=== PATIENT | male | born 1950 | race Caucasian/White ===

== ENCOUNTER → 2025-03-16 | Outpatient (BNVA) | payer MEDICARE, OTHER, SELFPAY | END | disposition home or self-care (01) | PROVIDERS: PCP Family Medicine; Referring Provider Family Medicine; Visit Provider Urology | DX: N40.1 Benign prostatic hyperplasia with lower urinary tract symptoms (principal); N13.8 Other obstructive and reflux uropathy; R97.20 Elevated prostate specific antigen [PSA]; E11.9 Type 2 diabetes mellitus without complications; I10 Essential (primary) hypertension; E66.9 Obesity, unspecified; Z68.28 Body mass index [BMI] 28.0-28.9, adult; Z87.440 Personal history of urinary (tract) infections | CPT/HCPCS: 81003; 99212; G0463 ==

== ENCOUNTER → 2025-07-04 | Outpatient (CLI) | payer MEDICARE, OTHER, SELFPAY ==
--- NOTE | 2025-07-04 08:30 | XR_ITS ---
Examination: CT abdomen and pelvis without contrast. Coronal 3-D reconstructions. Sagittal 2-D reconstructions. Date and time of exam:July 04, 2025 0855 hours INDICATIONS: Bilateral inguinal hernia repair 2006, onset right lower abdominal pain beginning 3 months ago, clinical diagnosis testicular mass CTDI: vol (mGy): 9.1 DLP: (mGycm): 545 Technique: Axial images of the abdomen have been obtained, 3 mm slice thickness Intravenous contrast material has not been administered. Low dose protocols were performed. One or more of the following dose reduction techniques were used; automated exposure control, adjustment of the mA and/or KV according to patient size, use of iterative reconstruction technique. Findings: 8mm liver cyst No extra hepatic biliary tract dilatation No gallstones. No pancreatic or adrenal mass Spleen is not enlarged. Perinephric stranding with 26 mm posterior left renal cyst 2 mm lower pole left renal calculus, no hydronephrosis Abdominal aortic calcification no aneurysmal dilatation Normal appendix Colonic diverticulosis, no diverticulitis Normal seminal vesicles Significant prostatomegaly, transverse dimension 6.4 cm with irregular contour Contracted urinary bladder Small fat-containing inguinal hernias Advanced degenerative disc disease L5-S1 Moderate to advanced narrowing hip joints IMPRESSION: Perinephric stranding, consider urinary tract infection 2 mm lower pole nonobstructing left renal calculus Colonic diverticulosis, no diverticulitis Normal appendix Significant prostatomegaly, irregular contour in addition, recommend correlation with PSA, consider transrectal prostate sonography follow-up Small fat-containing hernias
== END | disposition home or self-care (01) ==
LOC: CCTX 08:28
PROVIDERS: PCP Internal Medicine; Referring Provider Internal Medicine; Visit Provider Internal Medicine
DX: N39.0 Urinary tract infection, site not specified (principal); N20.0 Calculus of kidney; K57.30 Diverticulosis of large intestine without perforation or abscess without bleeding; N40.0 Benign prostatic hyperplasia without lower urinary tract symptoms; K46.9 Unspecified abdominal hernia without obstruction or gangrene
CPT/HCPCS: 74176

== ENCOUNTER 2025-07-15 06:06 | Inpatient (IN) | payer MEDICARE, OTHER, SELFPAY ==
[2025-07-15] VITALS (12 sets, daily range): BP systolic 132–181; BP diastolic 65–91; PULSE 58–69; RESP 14–97; TEMP 36.1–37; O2SAT 94–99; BMI 56.8
--- NOTE | 2025-07-15 | XR_ITS ---
Examinations: MRI Brain without intravenous contrast. MRA brain without intravenous contrast. MRA carotids without intravenous contrast 3-D vascular reconstructions Date and time of exam: July 15, 2025, 0900 hrs. Indications: Stroke alert this morning, onset focal neurologic deficit including left lower extremity weakness dizziness difficulty with speech Technique: Multiple axial and sagittal images of the brain have been obtained MRA brain carotid images without contrast obtained, including 3-D postprocessing, vascular maximum intensity projection images Findings: [place] is not enlarged. The optic chiasm and infundibular stalk are not remarkable. Prepontine and interpeduncular cisterns are not enlarged. No localized enlargement of the medulla or pam. Fourth ventricle and cerebellar tonsils normal in position. Subacute hemorrhage is not seen. Fourth ventricle is midline. Mass in the cerebellopontine angle region is not evident. 7th and 8th nerve complexes exhibits symmetry. Globes are symmetrical with no retro-orbital mass. Increased white matter signal mild to moderate Diffusion-weighted images demonstrate no focus restricted diffusion 9 x 5 mm mass external to the right cerebellar hemisphere, axial image 8 Mass-effect upon the ventricular system is not identified. MRA carotid images degraded by patient motion. MRA brain images posterior cerebral artery irregularity but no large vessel occlusions Impression: Negative for acute hemorrhage mass effect or midline shift No acute infarct Prominent chronic microvascular white matter change 9 x 4 mm mass external to the right cerebellar hemisphere, recommend MRI follow-up pre and postcontrast
--- NOTE | 2025-07-15 06:19 | XR_ITS ---
Examination: CT brain head without contrast. 2-D sagittal coronal reconstructions Date and time of exam:July 15, 2025, 0629 hrs. Indications: Stroke alert, onset focal neurologic deficit weakness beginning one hour ago CTDI: vol (mGy):57.5 DLP: (mGycm):1228 Technique: Multiple CT axial sections of the brain have been obtained, 5 mm slice thickness. Contrast has not been administered. 2-D sagittal, coronal reconstructions have been obtained Low dose protocols were performed. One or more of the following dose reduction techniques were used; automated exposure control, adjustment of the mA and/or KV according to patient size, use of iterative reconstruction technique. Findings: No significant ventricular enlargement. Intra-axial or extra-axial hemorrhage density is not seen. No mass effect or midline shift Basal cisterns are not remarkable. Fourth ventricle is midline. Cranial vault intact. Impression: Negative for acute hemorrhage, mass effect or midline shift
--- NOTE | 2025-07-15 06:19 | EKG_ITS ---
[facility] Test Date: 2025-07-15 Pat Name: MARIA ANTONIA CHEN Department: Room: - Gender: Male Geomagnetician: : 1950 Requested By: Nicole Monsalve Order Number: [id number] Reading MD: Nicole Monsalve Measurements Intervals [place] Rate: 59 P: 28 MS: 234 QRS: -60 QRSD: 104 T: 60 QT: 386 QTc: 385 Interpretive Statements SINUS BRADYCARDIA WITH FIRST DEGREE AV BLOCK LEFT AXIS DEVIATION [QRS AXIS < -30] SEPTAL MYOCARDIAL INFARCTION , OF INDETERMINATE AGE [40+ ms Q WAVE IN V1/V2] Compared to ECG 05/18/2023 10:53:40 Sinus rhythm no longer present Myocardial infarct finding still present /store/S0/[id number]/ecg/[id number].pdf
--- NOTE | 2025-07-15 06:19 | XR_ITS ---
Examination: CTA carotids with intravenous contrast CTA brain, head with intravenous contrast. 2-D sagittal, coronal reconstructions. 3-D reconstructions. Exam date and time: July 15, 2025, 0651 hrs. Indications: Stroke alert, onset focal neurologic deficit today CTDI: vol (mGy) 34.09 DLP: (mGycm) 604 Technique: Multiple CTA axial brain, head carotid images post intravenous contrast injection 75 cc, Isovue-370. 2-D sagittal, coronal reconstructions. 3-D reconstructions, 3-D post processing including vascular maximum intensity projection images. Low dose protocols were performed. One or more of the following dose reduction techniques were used; automated exposure control, adjustment of the mA and/or KV according to patient size, use of iterative reconstruction technique. Findings: Moderate calcification left carotid bifurcation but no significant common carotid carotid bifurcation or internal carotid artery stenoses Mildly dominant left vertebral artery in the neck with no critical stenoses No cerebral large vessel arterial occlusions or thrombus Impression: No significant neck arterial stenoses No cerebral large vessel arterial occlusions or thrombus
--- NOTE | 2025-07-15 06:19 | XR_ITS ---
Examination: AP chest single view Technique one AP portable upright chest single view Date and time: July 15, 2025, 0643 hrs., Comparison November 27, 2016 Indications: Shortness of breath today, stroke alert with chest pain Findings: Normal heart size No aspiration pneumonia. Accentuation basilar bronchovascular markings Prominent osteopenia Impression: Negative for aspiration pneumonia Basilar bronchitis pattern
--- NOTE | 2025-07-15 06:22 | PD.EDDIZZY ---
ED Dizzyness RME/HPI General Chief Complaint: Dizziness Stated Complaint: DIZZINESS Time Seen by Provider: 07/15/25 06:18 Source: patient and EMS Arrival date/time: 07/15/25 06:06 Mode of arrival: EMS Limitations: no limitations RME / HPI RME / HPI Narrative: DR. RENEE SALGADO ED EVALUATION: Patient is a 75 yo male that is in the ED with concerns unilateral weakness left lower extremity, slow speech, and dizzy this morning. Patient went to sleep at 8:30 PM, felt fine. When he woke up this morning felt that the room was spinning, felt that he had a hard time getting the words out and so he called 911. Patient denies chest pain shortness of breath abdominal pain dysuria hematuria melena bloody stools. Patient states he has a history of BPH, and has borderline hemoglobin A1c for which he takes metformin. Also has a history of hypertension. Denies any new medications, or substances. No fevers chills no cough no runny nose. Patient has been nauseous. Related Data Home Medications ?Medication ?Instructions ?Recorded ?Confirmed lisinopril 5 mg tablet 5 mg PO QDAY 08/12/19 03/16/25 amlodipine 5 mg tablet 5 mg PO HS 05/18/23 03/16/25 atorvastatin 10 mg tablet 10 mg PO HS 05/18/23 03/16/25 finasteride 5 mg tablet 5 mg PO QDAY 03/16/25 03/16/25 metformin 500 mg tablet 500 mg PO QDAY 03/16/25 03/16/25 tadalafil 5 mg tablet 5 mg PO QDAY 03/16/25 03/16/25 tamsulosin 0.4 mg capsule 0.4 mg PO BID 03/16/25 03/16/25 Allergies Allergy/AdvReac Type Severity Reaction Status Date / Time Penicillins Allergy Mild Rash Verified 03/16/25 10:20 Sulfa (Sulfonamide Allergy Nausea, Verified 03/16/25 10:20 Antibiotics) Vomiting Review of Systems Review of Systems Systems Reviewed: All systems reviewed, normal except as documented Past Medical History Past Medical History CARDIAC: Positive Cardiac Disorders and Hypertension OTHER HISTORY: Positive Chicken Pox, Measles, Mumps and Cancer Social History SMOKING STATUS: Never smoker SUBSTANCE USE: does not use ALCOHOL: Never ED Exam General Limitations: Present no limitations Head Head exam: Present atraumatic and normocephalic Eye Eye exam: Present normal appearance, PERRL and EOMI ENT ENT exam: Present normal exam and normal oropharynx Neck Neck exam: Present normal inspection and full ROM Chest Chest inspection: Present normal inspection; Absent symmetric chest wall rise Respiratory Respiratory exam: Present normal lung sounds bilaterally; Absent respiratory distress, wheezes or stridor Cardiovascular Cardiovascular exam: Present normal rhythm and bradycardia Abdominal Exam Abdominal exam: Present soft; Absent distention, tenderness, guarding or rebound Extremities Exam Extremities exam: Present normal inspection and other (Weakness left lower extremity) Neurological Exam Neurological exam: Present alert, CN II-XII intact and other (Weakness left lower extremity, mild left-sided facial droop, slurred speech) Skin Skin exam: Present warm, dry, intact and normal color Course Quality Measures none Orders Category Date Time Status Bedside Blood Glucose NOW Care 07/15/25 06:19 Active Bedside COVID-19 Antigen Test NOW Care 07/15/25 06:21 Active Bedside Influenza A&B Antigen Test NOW Care 07/15/25 06:21 Completed Loading Unit Operator Seating NOW Care 07/15/25 06:19 Active Continuous Pulse Oximetry NOW Care 07/15/25 06:19 Completed EKG (ED ONLY) *Do not use* NOW Care 07/15/25 06:19 Completed In and Out Catheter NEEDED Care 07/15/25 06:19 Active Insert IV NOW Care 07/15/25 06:19 Active NIH Stroke Scale now Care 07/15/25 06:19 Active NPO NOW Care 07/15/25 06:19 Active Nurse Swallow Screen x1 Care 07/15/25 06:19 Active Consult to Neurology / Tele-Neurology Routine Cons 07/15/25 06:[address] angio stroke protocol Stat Exams 07/15/25 06:[address] stroke protocol Stat Exams 07/15/25 06:19 Completed EKG (ED Only) Stat Exams 07/15/25 06:19 Draft XR chest 1V portable Stat Exams 07/15/25 06:19 Completed BNP [B-Type Natriuretic Peptide] Stat Lab 07/15/25 06:31 Completed CBC Stat Lab 07/15/25 06:31 Completed Comprehensive Metabolic Panel Stat Lab 07/15/25 06:31 Completed Drug Screen,Urine Stat Lab 07/15/25 06:19 Ordered Magnesium Stat Lab 07/15/25 06:31 Completed Partial Thromboplastin Time Stat Lab 07/15/25 06:31 Completed Prothrombin Time with INR Stat Lab 07/15/25 06:31 Completed Troponin I Stat Lab 07/15/25 06:31 Completed Urinalysis, C/S if Indicated Stat Lab 07/15/25 06:19 Ordered Aspirin [Ecotrin] Med 07/15/25 07:37 Discontinued 81 mg PO X1 ONE Clopidogrel [Plavix] Med 07/15/25 07:37 Discontinued 75 mg PO X1 ONE Ondansetron Inj [Zofran Inj] Med 07/15/25 06:19 Active 4 mg IVP Q4HR PRN Oseltamivir [Tamiflu] Med 07/15/25 07:31 Discontinued 75 mg PO X1 ONE Oxygen Delivery NOW RT 07/15/25 06:19 Active Vital Signs Vital signs: Vital Signs Pulse Rate 58 L 07/15/25 06:14 Respiratory Rate 18 07/15/25 06:14 Blood Pressure 153/85 H 07/15/25 06:14 Pulse Oximetry (%) 94 L 07/15/25 06:14 Oxygen Delivery Method Nasal Cannula 07/15/25 06:14 Dizziness MDM Narrative MDM Narrative:: Patient is a 75-year-old male into the emerged primary concerns for dizziness, weakness of his lower extremity as well as difficulty speaking. Vital signs and exam as listed. Concern for acute cerebrovascular accident, patient last known well is 8:30 PM. Patient has been less active bleeds window however is within the window for thrombectomy. Patient has a history of BPH, and bladder thickening. I discussed with him risk of contrast-induced nephropathy likely result in renal failure given his history of bladder dysfunction and not knowing his history of kidney disease. Patient denies any kidney disease, and states that he would like to move forward with contrast studies and not wait for his labs. Also concern for metabolic disturbance, ACS, dehydration, BPPV, DKA among others. Ordered stroke alert, patient is taken to the CT scanner hemodynamically stable Labs without acute hematologic or significant metabolic abnormality. Troponin not elevated. Patient is flu positive. Head CT, and CT angios unremarkable. On-call neurologist, agrees with not holding tenecteplase however is concerned about a posterior circulation stroke. Request admission for stroke workup. Patient admitted for CVA and Influenza A. IAndria, am scribing for and in the presence of Dr. Li. Patient data External records reviewed:: [facility] [place] previous records and EMS form Clinical information provided by:: patient and EMS Social determinants that could affect healthcare access:: none Patient has the following chronic illnesses:: Patient states he has a history of BPH, and has borderline hemoglobin A1c for which he takes metformin. Also has a history of hypertension. How is presenting disease/condition affected by chronic disease/condition?: exacerbated by Evaluation data The following diagnostics were reviewed and interpreted by me:: lab results, radiology exam(s) and EKG tracing(s) (My interpretation: EKG performed at 0652 hours, sinus bradycardia, rate 59, prolonged NE 234, normal QT, non specific T wave changes, no cardiac alert) Lab and/or radiology exams considered but not ordered:: none Interpretation Summary: See MDM narrative above. RADIOLOGY Procedure(s): XR chest 1V portable Accession Number(s): [id number] cc: Emanuel Prescott MD; Nicole Li MD~ Examination: AP chest single view Technique one AP portable upright chest single view Date and time: July 15, 2025, 0643 hrs., Comparison November 27, 2016 Indications: Shortness of breath today, stroke alert with chest pain Findings: Normal heart size No aspiration pneumonia. Accentuation basilar bronchovascular markings Prominent osteopenia Impression: Negative for aspiration pneumonia Basilar bronchitis pattern Dictated By: Emanuel Prescott MD Procedure(s): CT stroke protocol Accession Number(s): [id number] cc: Emanuel Prescott MD; Nicole Li MD~ Examination: CT brain head without contrast. 2-D sagittal coronal reconstructions Date and time of exam:July 15, 2025, 0629 hrs. Indications: Stroke alert, onset focal neurologic deficit weakness beginning one hour ago CTDI: vol (mGy):57.5 DLP: (mGycm):1228 Technique: Multiple CT axial sections of the brain have been obtained, 5 mm slice thickness. Contrast has not been administered. 2-D sagittal, coronal reconstructions have been obtained Low dose protocols were performed. One or more of the following dose reduction techniques were used; automated exposure control, adjustment of the mA and/or KV according to patient size, use of iterative reconstruction technique. Findings: No significant ventricular enlargement. Intra-axial or extra-axial hemorrhage density is not seen. No mass effect or midline shift Basal cisterns are not remarkable. Fourth ventricle is midline. Cranial vault intact. Impression: Negative for acute hemorrhage, mass effect or midline shift Dictated By: Emanuel Prescott MD Procedure(s): CT angio stroke protocol Accession Number(s): [id number] cc: Emanuel Prescott MD; Nicole Li MD~ Examination: CTA carotids with intravenous contrast CTA brain, head with intravenous contrast. 2-D sagittal, coronal reconstructions. 3-D reconstructions. Exam date and time: July 15, 2025, 0651 hrs. Indications: Stroke alert, onset focal neurologic deficit today CTDI: vol (mGy) 34.09 DLP: (mGycm) 604 Technique: Multiple CTA axial brain, head carotid images post intravenous contrast injection 75 cc, Isovue-370. 2-D sagittal, coronal reconstructions. 3-D reconstructions, 3-D post processing including vascular maximum intensity projection images. Low dose protocols were performed. One or more of the following dose reduction techniques were used; automated exposure control, adjustment of the mA and/or KV according to patient size, use of iterative reconstruction technique. Findings: Moderate calcification left carotid bifurcation but no significant common carotid carotid bifurcation or internal carotid artery stenoses Mildly dominant left vertebral artery in the neck with no critical stenoses No cerebral large vessel arterial occlusions or thrombus Impression: No significant neck arterial stenoses No cerebral large vessel arterial occlusions or thrombus Dictated By: Emanuel Prescott MD Medications / Prescriptions Medications or Prescriptions considered but not ordered:: None Medication administrations:: Medication Administration History Ondansetron HCl (Ondansetron Inj 2 Mg/Ml Inj 2 Ml) 4 mg IVP Q4HR PRN PRN Reason: NAUSEA OR VOMITING Stop: 08/14/25 06:18 Discontinued Medications Aspirin (Aspirin Ec 81 Mg Tabec) 81 mg PO X1 ONE Stop: 07/15/25 07:38 Clopidogrel Bisulfate (Clopidogrel Bisulfate 75 Mg Tablet) 75 mg PO X1 ONE Stop: 07/15/25 07:38 Oseltamivir Phosphate (Oseltamivir 75 Mg Capsule) 75 mg PO X1 ONE Stop: 07/15/25 07:32 See above Consultations Consultation(s) initiated? (list below): Yes Consultation #1 (Physician, Specialty, Details): Discussed test HPI, PMHx, lab, radiology results and/or management with resident working with the hospitalist. Will admit for further evaluation and management. Accepts patient for admission. Time: 07:39 Diagnosis Dizziness Differential Diagnosis: cerebrovascular accident, transient cerebral ischemia and other (lacunar stroke, vertebrobasilar stroke, brain bleed) Most likely diagnosis given after review of the tests above:: CVA Influenza A Admission Indicated Admission indicated?: indicated Admission Request Was there a request for admission?: Yes Admission Attestation Admission request attestation: Discussed case with [] from Hospitalist service regarding admission. Discussed patients ED course, exam findings, labs, and radiology results. The Hospitalist [agrees,declines] to accept the patient for admission. Disposition Plan Disposition Plan: Admit Critical Care Time Critical Care Time Critical Care Time: Yes Total Critical Care Time (min.): 45 Attestation: The high probability of sudden, clinically significant deterioration in the patient?s condition required the highest level of my preparedness to intervene urgently. The services I provided to this patient were to treat and/or prevent clinically significant deterioration. Services included the following: chart data review, reviewing nursing notes and/or old charts, documentation time, seo consultant collaboration regarding findings and treatment options, medication orders and management, direct patient care, vital sign assessments and ordering, interpreting and reviewing diagnostic studies and lab tests. Aggregate critical care time includes only time during which I was engaged in work directly related to the patient?s care, as described above, whether at bedside or elsewhere in the Emergency Department. It did not include time spent performing other reported procedures or the services of residents, students, nurses or physician assistants. Discharge Plan Plan Patient Disposition: Admit Acute Care w/in Hospital Prescriptions/Referrals Prescriptions/Med Rec: No Action lisinopril 5 mg tablet 5 mg PO QDAY tadalafil 5 mg tablet 5 mg PO QDAY metformin 500 mg tablet 500 mg PO QDAY finasteride 5 mg tablet 5 mg PO QDAY tamsulosin 0.4 mg capsule 0.4 mg PO BID atorvastatin 10 mg tablet 10 mg PO HS Patient Comments: TAKE ONE TABLET BY MOUTH ONE TIME DAILY amlodipine 5 mg tablet 5 mg PO HS Patient Comments: TAKE ONE TABLET BY MOUTH ONCE DAILY AT BEDTIME Problem List Clinical Impression: CVA (cerebral vascular accident), Influenza A Patient/Caregiver Discharge Instructions Print Language: Bengali Stand Alone Forms: [employer] Award Info., Patient Portal Info Letter
--- NOTE | 2025-07-15 06:22 | PC.NURSE ---
Case Consult 07/15/2025 06:21:49 [facility] Case # [id number] has been created.
[2025-07-15 06:48] LABS: Basophils # (Auto) 0.0 Thou/mm3 (0.0-0.2); Basophils % (Auto) 1 % (0-2.5); Eosinophils # (Auto) 0.2 Thou/mm3 (0.0-0.5); Eosinophils % (Auto) 2 % (0-10); Hematocrit 44.2 % (41.0-53.0); Hemoglobin 15.2 g/dL (13.5-16.0); Immature Granulocytes Auto 0.03 Thou/mm3 (0.00-0.00); Lymphocytes # (Auto) 1.3 Thou/mm3 (1.0-4.8); Lymphocytes % (Auto) 16 % (10-50); Mean Corpuscular HGB Conc 34.4 g/dl (31.0-37.0); Mean Corpuscular Hemoglobin 30.7 pg (25.0-35.0); Mean Corpuscular Volume 89 fL (80-100); Monocytes # (Auto) 0.5 Thou/mm3 (0.0-0.8); Monocytes % (Auto) 6 % (0-12); Neutrophils # (Auto) 6.0 Thou/mm3 (1.8-7.7); Neutrophils % (Auto) 75 % (37-80); Nucleated Red Blood Cell # 0.00 Thou/mm3 (0.00-0.00); Nucleated Red Blood Cell % 0 /100 WBC (0); Platelet Count 107 Thou/mm3 (140-440); RDW Standard Deviation 44.4 fL (35.1-43.9); Red Blood Count 4.95 Miln/mm3 (4.50-5.90); White Blood Count 7.9 Thou/mm3 (3.8-10.6)
--- NOTE | 2025-07-15 06:48 | ESCONSULT_ITS ---
Tele Neuro Consultation Consultation Date 07/15/25 Most Recent Vital Signs Last Vital Signs Temp 98.6 F 07/15/25 06:44 Pulse 67 07/15/25 06:45 Resp 14 07/15/25 06:45 BP 181/91 H 07/15/25 06:44 Pulse Ox 99 07/15/25 06:45 O2 Del Method Room Air 07/15/25 06:44 Consultation Narrative [facility] TeleNeurology Consult Services Patient Name:???Ravindra Simmons Date of :???1950 Identification Number:??? Date of Service:???07/15/2025 06:21:49 Diagnosis:?R42 - Dizziness/ Vertigo/ Giddiness Impression: ?Dizziness and vertigo. This presentation is concerning for a possible posterior circulation ischemic event, though a peripheral vestibular etiology such as benign paroxysmal positional vertigo (BPPV) is also in the differential. ? ?The patient is outside the time window for thrombolytic therapy and is therefore not a candidate for TNK. ? ?Initial CT head and CTA head and neck were negative for acute infarct, hemorrhage, or large vessel occlusion. ? ?I recommend starting dual antiplatelet therapy with aspirin 81 mg daily and clopidogrel 75 mg daily. ? ?Given the concern for a posterior circulation stroke not captured on initial CT, I recommend obtaining an MRI brain to further assess for diffusion restriction. ? ?Blood pressure to be managed conservatively with permissive hypertension, targeting a systolic range of 150?180 mmHg for the next 24 hours. ? ?Symptoms of vertigo without accompanying nausea or auditory symptoms remain suggestive of a central process. Our recommendations are outlined below. Recommendations: ? Stroke/Telemetry Floor ? Neuro Checks ? Bedside Swallow Eval ? DVT Prophylaxis ? IV Fluids, Normal Saline ? Head of Bed 30 Degrees ? Euglycemia and Avoid Hyperthermia (PRN Acetaminophen) Advanced Imaging: CTA Head and Neck Completed. LVO:No Patient is not a candidate for SYLVIE Metrics: Last Known Well: 07/14/2025 20:00:00 Dispatch Time: 07/15/2025 06:21:49 Arrival Time: 07/15/2025 06:06:00 Initial Response Time: 07/15/2025 06:23:46Symptoms: Dizziness . Initial patient interaction: 07/15/2025 06:29:01 NIHSS Assessment Completed: 07/15/2025 06:46:31Patient is not a candidate for Thrombolytic. Thrombolytic Medical Decision: 07/15/2025 06:46:33Patient was not deemed candidate for Thrombolytic because of following reasons: LKW outside 4.[address] Head: I personally reviewed all the CT images that were available to me and it showed: no acute changes Primary Provider Notified of Diagnostic Impression and Management Plan on: 07/15/2025 06:35:32 History of Present Illness:Patient is a 75 year old Male. Patient was brought by EMS for symptoms of Dizziness . A 75-year-old right-handed man with a past medical history of hypertension, benign prostatic hyperplasia, and borderline HbA1c, presented after awakening in the morning with a sudden onset of generalized weakness. He was reportedly at his neurological baseline the night before, around 8 PM. Upon waking, he noted he was unable to stand without assistance due to diffuse weakness and a sense of dizziness, particularly when lying flat. He denied any preceding trauma, chest pain, palpitations, shortness of breath, headache, vision changes, speech disturbances, or focal numbness. He was alert and oriented to person, place, time, and situation, with a Juan Miguel Coma Scale score of 15. No seizure-like activity or loss of consciousness was reported. Notably, he is not on any chronic anticoagulation or antiplatelet therapy, although he takes aspirin intermittently. No prior history of stroke or TIA was mentioned. There were no complaints of nausea, vomiting, diplopia, dysarthria, or dysphagia. Examination revealed no obvious focal deficits, though his inability to ambulate and positional dizziness raised concern for a central versus peripheral vestibular process. Past Medical History: ?Hypertension ?Diabetes Mellitus ?Hyperlipidemia Medications: No Anticoagulant use? No Antiplatelet use Reviewed EMR for current medications Allergies:? Reviewed Social History: Patient Is: Single Smoking: No Alcohol Use: No Drug Use: No Family History: There is no family history of premature cerebrovascular disease pertinent to this consultation ROS : 14 Points Review of Systems was performed and was negative except mentioned in HPI. Past Surgical History: There Is No Surgical History Contributory To Today?s Visit Examination: BP(181/91),?Pulse(63), 1A: Level of Consciousness - Alert; keenly responsive?+ 0 1B: Ask Month and Age - Both Questions Right?+ 0 1C: Blink Eyes & Squeeze Hands - Performs Both Tasks?+ 0 2: Test Horizontal Extraocular Movements - Normal?+ 0 3: Test Visual Parker - No Visual Loss?+ 0 4: Test Facial Palsy (Use Grimace if Obtunded) - Normal symmetry?+ 0 5A: Test Left Arm Motor Drift - No Drift for 10 Seconds?+ 0 5B: Test Right Arm Motor Drift - No Drift for 10 Seconds?+ 0 6A: Test Left Leg Motor Drift - No Drift for 5 Seconds?+ 0 6B: Test Right Leg Motor Drift - No Drift for 5 Seconds?+ 0 7: Test Limb Ataxia (FNF/Heel-Bedoya) - No Ataxia?+ 0 8: Test Sensation - Mild-Moderate Loss: Less Sharp/More Dull?+ 1 9: Test Language/Aphasia - Normal; No aphasia?+ 0 10: Test Dysarthria - Normal?+ 0 11: Test Extinction/Inattention - No abnormality?+ 0 NIHSS Score:?1 Pre-Morbid Modified Philmont Scale: 0 Points = No symptoms at all Spoke with :?Dr Li This consult was conducted in real time using interactive audio and video technology. Patient was informed of the technology being used for this visit and agreed to proceed. Patient located in hospital and provider located at home/office setting. Patient is being evaluated for possible acute neurologic impairment and high probability of imminent or life-threatening deterioration. I spent total of 40 minutes providing care to this patient, including time for face to face visit via telemedicine, review of medical records, imaging studies and discussion of findings with providers, the patient and/or family. Dr Raghav Pineda [facility] For Inpatient follow-up with [facility] physician please call [facility] at . As we are not an outpatient service for any post hospital discharge needs please contact the hospital for assistance. If you have any questions for the [facility] physicians or need to reconsult for clinical or diagnostic changes please contact us via [facility] at . Signature :Iva Pineda
[2025-07-15 07:00] LABS: B-Type Natriuretic Peptide 34 pg/mL (0-100); INR 1.1 (0.9-1.3); Partial Thromboplastin Time 27.9 Seconds (22.0-36.0); Prothrombin Time 11.5 Seconds (9.0-12.2)
[2025-07-15 07:04] LABS: Alanine Aminotransferase 20 U/L (10-49); Albumin, Serum 4.0 gm/dL (3.4-4.8); Albumin/Globulin Ratio 1.8 (1.2-2.2); Alkaline Phosphatase 52 U/L (46-116); Anion Gap 9 (7-16); Aspartate Amino Transferase 21 U/L (0-34); BUN/Creatinine Ratio 11 Ratio (12-20); Bilirubin,Total 0.8 mg/dL (0.3-1.2); Blood Urea Nitrogen 11 mg/dL (9-23); Calcium 9.9 mg/dL (8.3-10.6); Calcium (Corrected) 9.9 mg/dL (8.5-10.1); Carbon Dioxide 21.3 mMol/L (20.0-31.0); Chloride 105 mMol/L (98-107); Creatinine (Component) 1.0 mg/dL (0.6-1.3); Estimated Creatinine Clearance 114.0 mL/min (>60); Globulin 2.2 gm/dL (2.3-3.5); Glucose 145 mg/dL (74-106); Magnesium 1.8 mg/dL (1.6-2.6); Osmolality,Calculated 272 (275-295); Potassium 3.8 mMol/L (3.4-5.1); Sodium 135 mMol/L (136-145); Total Protein 6.2 gm/dL (5.7-8.2); Troponin I < 0.020 ng/mL (0.0-0.045); eGFR > 60 See Note
--- NOTE | 2025-07-15 07:43 | ECHO_ITS ---
Transthoracic Echo Report Ht (in): 72 Wt (lb): 180 Exam Location: Echo Lab Status: [employer] Team Member: Sayda Alston Indications: Procedure Performed: BP: 136 / 76 HR: 58 Technical Quality: Technically difficult study MEASUREMENTS (Male / Female) Normal Values 2D ECHO LV Diastolic Diameter PLAX 4.8 cm 4.2 - 5.9 / 3.9 - 5.3 cm LV Systolic Diameter PLAX 3.2 cm IVS Diastolic Thickness 1.2 cm 0.6 - 1.0 / 0.6 - 0.9 cm LVPW Diastolic Thickness 1.2 cm 0.6 - 1.0 / 0.6 - 0.9 cm LV Relative Wall Thickness 0.5 LVOT Diameter 1.6 cm Aortic Root Diameter 3.6 cm LV Ejection Fraction MOD BP 61.5 % >= 55 % LV Cardiac Index MOD BP 1355.2 cm?/min?m? LV Ejection Fraction MOD 4C 61.0 % LV Cardiac Index MOD 4C 1463.2 cm?/min?m? LV Ejection Fraction 4C AL 63.0 % LV Cardiac Index 4C AL 1603.6 cm?/min?m? LV Ejection Fraction MOD 2C 59.6 % LV Cardiac Index MOD 2C 1150.7 cm?/min?m? LV Ejection Fraction 2C AL 63.4 % LV Cardiac Index 2C AL 1272.5 cm?/min?m? Ascending Aorta Diameter 2.8 cm M-MODE Aortic Root Diameter MM 3.5 cm LA Systolic Diameter MM 3.4 cm LA Ao Ratio MM 1.0 AV Cusp Separation MM 1.9 cm DOPPLER AV Peak Velocity 165.0 cm/s AV Peak Gradient 10.9 mmHg AV Mean Gradient 6.0 mmHg AV Velocity Time Integral 35.1 cm AI Peak Velocity 246.0 cm/s AI Peak Gradient 24.2 mmHg AI Pressure Half Time 716.0 ms LVOT Peak Velocity 121.0 cm/s LVOT Peak Gradient 5.9 mmHg LVOT Velocity Time Integral 26.3 cm LVOT Cardiac Index 1502.4 cm?/min?m? AV Area Cont Eq vti 1.5 cm? AV Area Cont Eq pk 1.5 cm? MV Area PHT 2.6 cm? Mitral E Point Velocity 54.3 cm/s Mitral A Point Velocity 85.4 cm/s Mitral E to A Ratio 0.6 LV E' Lateral Velocity 5.3 cm/s Mitral E to LV E' Lateral Ratio 10.2 LV E' Septal Velocity 4.1 cm/s Mitral E to LV E' Septal Ratio 13.1 PV Peak Velocity 47.1 cm/s PV Peak Gradient 0.9 mmHg FINDINGS Left Ventricle Normal left ventricular size, wall thickness, systolic function with no obvious regional wall motion abnormalities. The ejection fraction is visually estimated at 55-60%. There is grade I diastolic dysfunction of the left ventricle (impaired relaxation pattern). Right Ventricle The right ventricle is normal in size and systolic function. Left Atrium The left atrium is normal by two-dimensional, color flow and Doppler imaging with no structural abnormalities, no thrombus formation present. Right Atrium The right atrium is normal by two-dimensional imaging, color flow and Doppler imaging with no structural abnormalities, no thrombus formation present. Atrial Septum The interatrial septum appears normal with no evidence of a shunt. Aorta The aorta is normal by two-dimensional, color flow and Doppler interrogation. Mitral Valve The mitral valve is normal by two-dimensional, color flow and Doppler interrogation. There is no significant mitral valve regurgitation, stenosis or prolapse. Aortic Valve The aortic valve is trileaflet and normal by two-dimensional, color flow and Doppler interrogation. Mild aortic valve regurgitation. Tricuspid Valve The tricuspid valve is normal by two-dimensional, color flow and Doppler interrogation. There is trace tricuspid valve regurgitation. Pulmonic Valve The pulmonic valve is not well visualized. There is no significant pulmonic valve regurgitation. Vessels The pulmonary artery appears normal. The inferior vena cava pulmonary and hepatic veins appear normal. Pericardium The pericardium is normal by two-dimensional imaging. There is no significant pericardial effusion. CONCLUSIONS Indication: stroke workup Negative bubble study. Normal LV size and function. Estimated EF at 55-60%. There is grade I diastolic dysfunction. The RV is normal in size and systolic function. Mild AI. Trace TR. Ronald Sampson (Electronically Signed) Final Date: 16 July 2025 13:16
[2025-07-15] MEDS: OSELTAMIVIR 75 MG CAPSULE PO (07:49)
[2025-07-15] MEDS: CLOPIDOGREL BISULFATE 75 MG TABLET PO (07:49)
[2025-07-15] MEDS: ASPIRIN EC 81 MG TABEC PO (07:49)
[2025-07-15 07:55] LABS: Collection Type, Urine Clean Catch; WBC,Urine 0 /hpf (0-5)
[2025-07-15 07:59] LABS: Bilirubin,Urine Negative (Negative); Blood,Urine Negative (Negative); Clarity,Urine Clear (Clear/Hazy); Color,Urine Colorless (Lt Yel-Yel); Culture Indicated,Urine Not Indicated; Glucose, Urine Negative (Negative); Ketones,Urine Negative (Negative); Leukocyte Esterase,Urine Negative (Negative); Nitrite,Urine Negative (Negative); PH,Urine 7.5 (5.0-7.0); Protein,Urine Negative (Neg - Trace); RBC,Urine 1 /hpf (0-3); Squamous Epithelial Cell,Urine < 1 /hpf (0-5); Urobilinogen,Urine Negative mg/dL (0.0-1.0)
[2025-07-15 08:09] LABS: Cardiac Risk Estimate 3.5 RATIO (4.0-6.7); Cholesterol 138 mg/dL (132-200); HDL Cholesterol 40 mg/dL (40-60); LDL Cholesterol,Calculated 87 mg/dL (0-130); Triglycerides 56 mg/dL (30-150)
[2025-07-15 08:20] LABS: Glucose Estimated Average 128 mg/dL (80-131); Hemoglobin A1C 6.1 % Hgb (4.8-6.0)
[2025-07-15 08:38] LABS: Specific Gravity,Urine 1.010 (1.001-1.035)
[2025-07-15 08:54] LABS: Amphetamine/Methamp Scrn,U Negative (Negative); Barbiturate Screen,Urine Negative (Negative); Benzodiazepines Screen,Urine Negative (Negative); Benzoylecgonine Screen, Ur Negative (Negative); Fentanyl Screen,Urine Negative (Negative); Opiate Screen,Urine Negative (Negative); THC Screen,Urine Negative (Negative)
--- NOTE | 2025-07-15 15:55 | PD.RESHP ---
Documentation for date of: 07/15/25 HPI History of Present Illness Chief complaint: dizziness History of present illness: Ravindra Simmons is 75 yr male with PMH of HTN, BPH, HLD, non insulin dependent T2DM presenting to ED from home due to dizziness. Stated he was trying to get up from bed last night to use the restroom but his body felt heavy. While laying in bed he was feeling dizzy and said the room was spinning. Endorsed weakness and some incontinence. Denied any headache, vomiting, slurred speech, abdominal pain, no hearing loss, or falls. Patient lives alone but has a son who visits. He is able to complete ADLs without difficulties. Has good oral intake. Episode lasted until time in ambulance. Their have been no recent changes in his medications. Vitals and labs were stable in the ED. A1c 6.1, lipid profile unremarkable. Utox, UA negative. CT head, CTA negative for hemorrhage or LVO. 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 Tele neuro was consulted. He was not candidate for thrombolytics as LWK was out of window. NIHSS score 1, given loading dose asprin and Plavix in ED. Will admit for CVA workup. PMH: as noted above PSH: hernia repair Famhx: sister has MS, negative for cancer or stroke Social: lives in [place], denies smoking or drinking Meds: Amlodipine 5 mg, atorvastatin 10 mg, finasteride 5 mg, lisinopril 20 mg, metformin 500 mg daily, tadalafil 5 mg daily, tamsulosin 0.4 mg twice daily Allergies: reash from penicillin, n/v from sulfas Review of Systems Review of Systems Systems Reviewed: All systems reviewed, normal except as documented Exam Vital Signs Temp Pulse Resp BP Pulse Ox O2 Del Method 97.0 F 63 17 140/77 H 97 Room Air 07/15/25 12:07/15/25 12:07/15/25 12:07/15/25 12:07/15/25 12:07/15/25 12:25 Narrative Exam General: Elder male, slow to respond, No acute distress, cooperative HEENT: NCAT, No JVD noted. Mucosa dry. Pupils are equal and reactive to light bilaterally. No nystagmus Cardiovascular: Normal S1 and S2. Regular rate and rhythm. Respiratory: Lungs are clear to auscultation bilaterally. No wheezing or crackles heard. Abdomen: Soft, nontender, not distended, normal bowel sounds. Bladder distension on palpation Skin: Warm to touch, dry, no rashes noted Musculoskeletal: No gross injuries. Able to move all 4 extremities. No pitting edema Neuro: Alert and oriented x3. No focal neuro deficits noted on exam Psych: Normal affect and mood Results: Labs 07/16/25 05:47 07/16/25 05:47 Labs: Short CBC 07/15/25 Range/Units 06:31 WBC 7.9 (3.8-10.6) Thou/mm3 Hgb 15.2 (13.5-16.0) g/dL Hct 44.2 (41.0-53.0) % Plt Count 107 L (140-440) Thou/mm3 BMP 07/15/25 06:31 Sodium 135 L Potassium 3.8 Chloride 105 Carbon Dioxide 21.3 BUN 11 Creatinine 1.0 Glucose 145 H Calcium 9.9 Cardiac Enzymes 07/15/25 Range/Units 06:31 Troponin I < 0.020 (0.0-0.045) ng/mL Liver Function 07/15/25 Range/Units 06:31 Total Bilirubin 0.8 (0.3-1.2) mg/dL AST 21 (0-34) U/L ALT 20 (10-49) U/L Alkaline Phosphatase 52 (46-116) U/L Albumin 4.0 (3.4-4.8) gm/dL Urine 07/15/25 Range/Units 07:12 Urine Color Colorless A (Lt Yel-Yel) Urine Clarity Clear (Clear/Hazy) Urine pH 7.5 H (5.0-7.0) Ur Specific [place] 1.010 (1.001-1.035) Urine Protein Negative (Neg - Trace) Urine Glucose (UA) Negative (Negative) Quality Measures Quality Measures none Advance care planning discussed with:: patient Medications Home Medications and Allergies Home Medications ?Medication ?Instructions ?Recorded ?Confirmed ?Type amlodipine 5 mg tablet 5 mg PO HS 05/18/23 07/15/25 History atorvastatin 10 mg tablet 10 mg PO HS 05/18/23 07/15/25 History finasteride 5 mg tablet 5 mg PO QDAY 03/16/25 07/15/25 History metformin 500 mg tablet 500 mg PO QDAY 03/16/25 07/15/25 History tadalafil 5 mg tablet 5 mg PO QDAY 03/16/25 07/15/25 History tamsulosin 0.4 mg capsule 0.4 mg PO BID 03/16/25 07/15/25 History lisinopril 20 mg tablet 20 mg PO QDAY 07/15/25 07/15/25 History Allergies Allergy/AdvReac Type Severity Reaction Status Date / Time Penicillins Allergy Mild Rash Verified 03/16/25 10:20 Sulfa (Sulfonamide Allergy Nausea, Verified 03/16/25 10:20 Antibiotics) Vomiting Visit Medications Acetaminophen (Acetaminophen 325 Mg Tablet) 650 mg PO Q6H PRN PRN Reason: Fever >100.4 or pain Stop: 08/14/25 07:42 Dextrose (Dextrose 50%-Water Inj 50 Ml Syringe) 25 ml IV Q15MIN PRN PRN Reason: BG 50-70 responsive npo pt Stop: 08/14/25 07:52 Dextrose (Dextrose 50%-Water Inj 50 Ml Syringe) 50 ml IV Q15MIN PRN PRN Reason: BG <50 OR BG <70 & pt unresponsive Stop: 08/14/25 07:52 Glucagon (Glucagon Inj 1 Mg Vial) 1 mg IM Q15MIN PRN PRN Reason: BG <70, and no IV access Insulin Human Lispro (Insulin Lispro (Admelog) 1 Unit/0.01 Ml Unit) 0 unit SC ACHS CARLITA; Protocol Stop: 08/14/25 11:29 Last Admin: 07/15/25 12:20 Dose: Not Given Labetalol HCl (Labetalol Inj 5 Mg/Ml Vial 20 Ml) 10 mg IVP Q4HR PRN PRN Reason: for SBP >180 Stop: 08/14/25 07:49 Ondansetron HCl (Ondansetron Inj 2 Mg/Ml Inj 2 Ml) 4 mg IVP Q6H PRN; Protocol PRN Reason: NAUSEA OR VOMITING Stop: 08/14/25 07:42 Oseltamivir Phosphate (Oseltamivir 75 Mg Capsule) 75 mg PO BID CARLITA Stop: 07/21/25 09:01 Sennosides (Senna Tablet) 1 tab PO QDAY PRN; Protocol PRN Reason: constipation Stop: 08/14/25 07:42 Discontinued Medications Aspirin (Aspirin Ec 81 Mg Tabec) 81 mg PO X1 ONE Stop: 07/15/25 07:38 Last Admin: 07/15/25 07:49 Dose: 81 mg Clopidogrel Bisulfate (Clopidogrel Bisulfate 75 Mg Tablet) 75 mg PO X1 ONE Stop: 07/15/25 07:38 Last Admin: 07/15/25 07:49 Dose: 75 mg Ondansetron HCl (Ondansetron Inj 2 Mg/Ml Inj 2 Ml) 4 mg IVP Q4HR PRN PRN Reason: NAUSEA OR VOMITING Stop: 08/14/25 06:18 Oseltamivir Phosphate (Oseltamivir 75 Mg Capsule) 75 mg PO X1 ONE Stop: 07/15/25 07:32 Last Admin: 07/15/25 07:49 Dose: 75 mg Assessment & Plan Plan Ravindra Simmons is 75 yr male with PMH of HTN, BPH, HLD, non insulin dependent T2DM presenting to ED from home due to dizziness. Stated he was trying to get up from bed last night to use the restroom but his body felt heavy. While laying in bed he was feeling dizzy and said the room was spinning. Will admit for CVA rule out. #Dizziness DDx: Ischemic stroke, TIA, cerebellar mass, vertigo Stated he was trying to get up from bed last night to use the restroom but his body felt heavy. While laying in bed he was feeling dizzy and said the room was spinning. Endorsed weakness and some incontinence. Vitals and labs were stable in the ED. Utox, UA negative. CT head, CTA negative for hemorrhage or LVO. 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 He was not candidate for thrombolytics as LWK was out of window. NIHSS score 1, given loading dose asprin and Plavix in ED. A1c 6.1, lipid profile unremarkable ?Dr. Connell was consulted--appreciate recs ?Start aspirin 81 mg and Plavix 75 mg daily shira teleneuro -atorvastatin 40 mg HS ? Echo pending ?Physical therapy pending ? Head of bed elevation 30 degrees ? Continue permissive hypertension for 24 hours as per neurorecommendations ? 10 mg IV labetalol every 4 hours as needed if BP >[id number] # [id number] type 2 diabetes On admission initial glucose 145. Last A1c 6.3 on 05/10. Patient takes metformin 500mg daily for diabetes at home. -Held home medications -Bedside blood glucose checks ACHS -Insulin lispro sliding scale -Carb consistent low diet -A1c 6.1 #BPH #Prostatomegaly Cr 1.0, bladder distension on exam. Follows with Dr. Peralta. Patient has seen urologist in [place] in 2018 said that he had noninvasive biopsy of the prostate gland. CT AP from 07/04 Significant prostatomegaly, transverse dimension 6.4 cm with irregular contour -insert ramirez cath -continue finasteride 5mg daily -holding tamsulosin 0.4 mg BID until after 24 hr permissive htn #HTN Holding home medications lisinopril 20 mg daily and amlodipine 5 mg until tomorrow -Monitor vitals Health maintenance: Dispo: tele, CVA rule out FEN: low carb diet DVT prophylaxis: Lovenox 40 CODE STATUS: Full code The patient's management plan was discussed with my attending physician Dr. Blaine Cavazos, PGY-2 Attending Provider Attestation/Addendum I, Renetta Valladares, , attest that I was physically present for the [place] portions of the service and evaluated the patient with the resident and I reviewed and discussed the case with the resident and agree with the resident's findings and plans of care as documented above Patient is a 75-year-old male with past medical history of hypertension, BPH, hyperlipidemia, type II NIDDM who presents to the ED due to dizziness. Patient states that he was trying to get out of bed at 2 in the morning to use the bathroom due to his voiding issues with BPH when he felt dizzy. He got up again around 4:30 in the morning during which he fell backwards in his bed after his trying to get up. He states that he felt as though his vision was rotating in a vertical manner. He denies any past episodes of dizziness in the past. Patient lives alone and is independent. He subsequently came to the ED due to concern for CVA. [facility] transfer from [facility], patient stated that his dizziness came on again but the room began to spin in a horizontal manner. Stroke alert was called from ED during which thrombolytics were not recommended as he was out of the window. Patient endorses having some left-sided weakness and son at bedside states there are some delay with his responses. Patient currently denies any blurry vision, nausea, vomiting, headache otherwise. He also was found to have influenza in the ED, but does not endorse any cough or shortness of breath. He does have some mild sinus pressure on the right side otherwise. Patient states that he suffers from tinnitus, worse on the left than the right. MRI was done showing no evidence of CVA, but shows a 9 x 5 mm mass external to the right cerebellar hemisphere. Will admit patient to telemetry for further workup of dizziness secondary to TIA versus vestibular dysfunction. Will start patient on Tamiflu due to influenza. Will follow-up with neurology recommendations. Stroke workup was ordered, pending PT/ST. Echo ordered. Patient does not have any nystagmus on exam. He is noted to have mild dysmetria on [id number] test, but is bilateral. [id number] exam was within normal limits and coordinated. Gross sensation is intact. Muscle strength is 4+ out of 5 in right upper and lower extremities and 4- out of 5 in left upper and left lower extremities. Patient is noted to have mild strabismus of his left eye, which patient states he always had a lazy eye . Patient started on aspirin and Plavix. Will continue to follow-up with neurology recommendations otherwise.
[2025-07-15] MEDS: FINASTERIDE 5 MG TABLET PO (17:01)
[2025-07-15] MEDS: ENOXAPARIN SOD INJ 40 MG/0.4 ML SYRINGE SC (18:14)
[2025-07-15] MEDS: ATORVASTATIN CALCIUM 20 MG TABLET 40 MG PO (21:58)
--- NOTE | 2025-07-15 23:52 | ESPR_ITS ---
Documentation for date of: 07/15/25 Subjective Subjective Interval history: Patient was seen in telemetry today with his son at the bedside. He stated that his dizziness is going away, has mild headache from flu. Exam - Neurology Vital Signs Temp Pulse Resp BP Pulse Ox O2 Del Method 97.1 F 69 19 132/65 H 97 Room Air 07/15/25 20:00 07/15/25 20:00 07/15/25 20:00 07/15/25 20:00 07/15/25 20:00 07/15/25 20:00 Narrative Exam GENERAL APPEARANCE: Well hydrated, well-nourished in no acute distress. HEENT: Normocephalic, atraumatic, extraocular movements intact. Pupils: Equal reacting to light and accommodation NECK: Supple, no JVD or bruits. CARDIOVASULAR: Heart: S1, S2 heard, regular without S3-S4 or murmur no rubs or gallops. LUNGS/CHEST: Clear to auscultation bilaterally. No rails, rhonchi, or wheezing. Normal inspection. ABDOMEN: Soft, nontender, with normal bowel sounds. No pulsatile masses. No rebound, rigidity, or guarding. Normal inspection and palpation. EXTREMITIES: Normal inspection and palpation. No edema, clubbing or cyanosis. SKIN: Warm and dry without rashes. Normal inspection. MUSCULOSKELETAL: No cervical, thoracic, lumbar or midline bony tenderness. Normal inspection. NEURO: Alert, awake and oriented x3. Cranial nerves: II through XII grossly intact. Speech and language: Normal with no dysarthria or dysphasia. Motor system: Tone and bulk: Normal: Strength: 5 out of 5 in all 4 extremities; No pronator drift noted. Deep tendon reflexes: 2+ bilaterally symmetrical. Plantar reflex: Downgoing bilaterally. Sensory system: Intact to all modalities of sensation bilaterally. Coordination: Intact to knodbc-kjee-tmogq and avxx-kwaz-jdbn test bilaterally. No ataxia, no dysmetria, or dysdiadochokinesia noted. No intention tremors noted. Gait: Normal. No signs of meningeal irritation noted. PSYCHIATRIC: Normal mood and affect. Objective Labs 07/15/25 06:31 07/15/25 06:31 Labs: Laboratory Results - last 24 hr 07/15/25 07/15/25 06:31 07:12 WBC 7.9 RBC 4.95 Hgb 15.2 Hct 44.2 MCV 89 MCH 30.7 MCHC 34.4 RDW Std Deviation 44.4 H Plt Count 107 L Neut % (Auto) 75 Lymph % (Auto) 16 [place] % (Auto) 6 Eos % (Auto) 2 Baso % (Auto) 1 Neut # (Auto) 6.0 Lymph # (Auto) 1.3 [place] # (Auto) 0.5 Eos # (Auto) 0.2 Baso # (Auto) 0.0 Immature Gran # (Auto) 0.03 H Absolute Nucleated RBC 0.00 Immature Gran % 0 Nucleated RBC % 0 PT 11.5 INR 1.1 APTT 27.9 Sodium 135 L Potassium 3.8 Chloride 105 Carbon Dioxide 21.3 Anion Gap 9 BUN 11 Creatinine 1.0 Estim Creat Clear Calc 114.0 eGFR > 60 BUN/Creatinine Ratio 11 L Glucose [address] Glu mg/dL 128 Hemoglobin A1c 6.1 H Calculated Osmolality 272 L Calcium 9.9 Corrected Calcium 9.9 Magnesium 1.8 Total Bilirubin 0.8 AST 21 ALT 20 Alkaline Phosphatase 52 Troponin I < 0.020 B-Natriuretic Peptide 34 Total Protein 6.2 Albumin 4.0 Globulin 2.2 L Albumin/Globulin Ratio 1.8 Triglycerides 56 Cholesterol 138 LDL Cholesterol, Calc 87 HDL Cholesterol 40 Cholesterol/HDL Ratio 3.5 L Ur Collection Type Clean Catch Urine Color Colorless A Urine Clarity Clear Urine pH 7.5 H Ur Specific [place] 1.010 Urine Protein Negative Urine Glucose (UA) Negative Urine Ketones Negative Urine Blood Negative Urine Nitrite Negative Urine Bilirubin Negative Urine Urobilinogen (Auto) Negative Ur Leukocyte Esterase Negative Urine RBC 1 Urine WBC 0 Ur Squamous Epith Cells < 1 Urine Bacteria None Ur Culture Indicated? Not Indicated Urine Opiates Screen Negative Urine Fentanyl Screen Negative Ur Barbiturates Screen Negative U Amphetamin/Meth Scrn Negative U Benzodiazepines Scrn Negative U Cocaine Metab Screen Negative U Marijuana (THC) Screen Negative Assessment & Plan Assessment and plan (1) TIA (transient ischemic attack): Status: Resolved Assessment and plan: Reassurance given to the patient regarding the negative MRI brain for acute infarction. Chronic microvascular white matter changes noted and not demyelination. Continue with aspirin 81 mg along with statin. (2) Influenza A: Status: Acute Assessment and plan: Continue with the Tamiflu as per primary team (3) Hypertension: Status: Chronic Assessment and plan: Continue with aggressive blood pressure management (4) Type 2 diabetes mellitus: Status: Chronic Assessment and plan: A1c: 6.1 continue to check fingerstick glucose and follow sliding scale insulin per protocol
[2025-07-16] VITALS: BP 129/81; PULSE 60; PULSE 61; RESP 21; TEMP 36.5; O2SAT 95; BMI 27.4
[2025-07-16 04:00] VITALS: BP 157/82; PULSE 58; PULSE 59; RESP 19; TEMP 36.6; O2SAT 97
[2025-07-16 06:22] LABS: Basophils # (Auto) 0.0 Thou/mm3 (0.0-0.2); Basophils % (Auto) 0 % (0-2.5); Eosinophils # (Auto) 0.1 Thou/mm3 (0.0-0.5); Eosinophils % (Auto) 2 % (0-10); Hematocrit 49.5 % (41.0-53.0); Hemoglobin 17.0 g/dL (13.5-16.0); Immature Granulocytes Auto 0.01 Thou/mm3 (0.00-0.00); Lymphocytes # (Auto) 1.5 Thou/mm3 (1.0-4.8); Lymphocytes % (Auto) 21 % (10-50); Mean Corpuscular HGB Conc 34.3 g/dl (31.0-37.0); Mean Corpuscular Hemoglobin 31.0 pg (25.0-35.0); Mean Corpuscular Volume 90 fL (80-100); Monocytes # (Auto) 0.6 Thou/mm3 (0.0-0.8); Monocytes % (Auto) 8 % (0-12); Neutrophils # (Auto) 4.8 Thou/mm3 (1.8-7.7); Neutrophils % (Auto) 68 % (37-80); Nucleated Red Blood Cell # 0.00 Thou/mm3 (0.00-0.00); Nucleated Red Blood Cell % 0 /100 WBC (0); Platelet Count 122 Thou/mm3 (140-440); RDW Standard Deviation 45.1 fL (35.1-43.9); Red Blood Count 5.49 Miln/mm3 (4.50-5.90); White Blood Count 7.0 Thou/mm3 (3.8-10.6)
[2025-07-16 06:41] LABS: Alanine Aminotransferase 19 U/L (10-49); Albumin, Serum 4.4 gm/dL (3.4-4.8); Albumin/Globulin Ratio 1.8 (1.2-2.2); Alkaline Phosphatase 61 U/L (46-116); Anion Gap 8 (7-16); Aspartate Amino Transferase 20 U/L (0-34); BUN/Creatinine Ratio 11 Ratio (12-20); Bilirubin,Total 1.6 mg/dL (0.3-1.2); Blood Urea Nitrogen 11 mg/dL (9-23); Calcium 10.7 mg/dL (8.3-10.6); Calcium (Corrected) 10.7 mg/dL (8.5-10.1); Carbon Dioxide 22.9 mMol/L (20.0-31.0); Chloride 107 mMol/L (98-107); Creatinine (Component) 1.0 mg/dL (0.6-1.3); Estimated Creatinine Clearance 63.7 mL/min (>60); Globulin 2.4 gm/dL (2.3-3.5); Glucose 115 mg/dL (74-106); Magnesium 2.2 mg/dL (1.6-2.6); Osmolality,Calculated 276 (275-295); Phosphorous 2.6 mg/dL (2.4-5.1); Potassium 4.2 mMol/L (3.4-5.1); Sodium 138 mMol/L (136-145); Thyroid Stimulating Hormone 1.79 uIU/mL (0.55-4.78); Total Protein 6.8 gm/dL (5.7-8.2); eGFR > 60 See Note
[2025-07-16 07:29] VITALS: PULSE 65; RESP 18; RESP 98
[2025-07-16 08:00] VITALS: BP 136/76; PULSE 58; PULSE 61; RESP 19; TEMP 36.1; O2SAT 93
[2025-07-16] MEDS: ASPIRIN EC 81 MG TABEC PO (08:14)
[2025-07-16] MEDS: CLOPIDOGREL BISULFATE 75 MG TABLET PO (08:14)
[2025-07-16] MEDS: FINASTERIDE 5 MG TABLET PO (08:14)
[2025-07-16] MEDS: ENOXAPARIN SOD INJ 40 MG/0.4 ML SYRINGE SC (08:14)
[2025-07-16] MEDS: RINGERS LACTATED 1000 ML 1,000 ML 120 ML IV (09:19)
--- NOTE | 2025-07-16 09:49 | PC.SS ---
Addendum entered by KAYLI Don 07/16/25 15:02: Rounding note: pending echo. Addendum entered by KAYLI Don 07/16/25 10:55: Patient is a 75 year old male presenting to the hospital for CVA workup. PROOFER PREPRESS placed phone call to patient?s son Vinh. PROOFER PREPRESS explained role and reason for phone call. Vinh stated that he is currently in the room with patient. Vinh and patient confirmed demographic information and stated that he lives alone. Vinh stated that in case patient is unable to make medical decisions on his own Vinh would be the one to make them. Patient does not use DME, PCP is Dr. Pichardo at [facility] last visit was last week, pharmacy is [facility]. Patient is retired, will d/c home once medically clear, and Vinh will provide transportation. PCP: Dr. Pichardo Decision maker: Vinh [facility] [phone] D/c: home Original Note: PROOFER PREPRESS placed phone call to patients son Vinh to complete initial assessment, Vinh was not available, PROOFER PREPRESS left voicemail with call back number.
[2025-07-16 12:00] VITALS: BP 134/75; PULSE 59; PULSE 82; RESP 15; TEMP 36.2; O2SAT 95
--- NOTE | 2025-07-16 13:40 | PD.RESPRO ---
Documentation for date of: 07/16/25 Subjective Subjective Interval history: Patient examined at bedside. No events overnight. Vitals are stable, labs noted for elevated bilirubin 1.6. LFTs in normal limits and has no abdominal pain on exam. Likely due to dehydration as also evidenced by increase in Hb. Started maintainence fluids LR @ 120cc/hr. Patient and son at bedside were updated and all questions were answered. Plan to continue aspirin daily with atorvastatin. Patient can get MRI brain with contrast done outpatient as further workup for small right cerebellar mass. Denies any dizziness this morning. Echo is pending. Anticipate discharge next 24 hrs. Exam Vital Signs Temp Pulse Resp BP Pulse Ox O2 Del Method 97.1 F 59 L 15 134/75 H 95 Room Air 07/16/25 12:00 07/16/25 12:00 07/16/25 12:00 07/16/25 12:00 07/16/25 12:00 07/16/25 12:00 Narrative Exam General: Elder male, No acute distress, cooperative HEENT: NCAT, No JVD noted. Mucosa dry. Pupils are equal and reactive to light bilaterally. No nystagmus Cardiovascular: Normal S1 and S2. Regular rate and rhythm. Respiratory: Lungs are clear to auscultation bilaterally. No wheezing or crackles heard. Abdomen: Soft, nontender, not distended, normal bowel sounds. : ramirez in place Skin: Warm to touch, dry, no rashes noted Musculoskeletal: No gross injuries. Able to move all 4 extremities. No pitting edema Neuro: Alert and oriented x3. No focal neuro deficits noted on exam Psych: Normal affect and mood Objective Labs 07/16/25 05:47 07/16/25 05:47 Labs: Laboratory Results - last 24 hr 07/16/25 05:47 WBC 7.0 RBC 5.49 Hgb 17.0 H Hct 49.5 MCV 90 MCH 31.0 MCHC 34.3 RDW Std Deviation 45.1 H Plt Count 122 L Neut % (Auto) 68 Lymph % (Auto) 21 [place] % (Auto) 8 Eos % (Auto) 2 Baso % (Auto) 0 Neut # (Auto) 4.8 Lymph # (Auto) 1.5 [place] # (Auto) 0.6 Eos # (Auto) 0.1 Baso # (Auto) 0.0 Immature Gran # (Auto) 0.01 H Absolute Nucleated RBC 0.00 Immature Gran % 0 Nucleated RBC % 0 Sodium 138 Potassium 4.2 Chloride 107 Carbon Dioxide 22.9 Anion Gap 8 BUN 11 Creatinine 1.0 Estim Creat Clear Calc 63.7 eGFR > 60 BUN/Creatinine Ratio 11 L Glucose 115 H Calculated Osmolality 276 Calcium 10.7 H Corrected Calcium 10.7 H Phosphorus 2.6 Magnesium 2.2 Total Bilirubin 1.6 H D AST 20 ALT 19 Alkaline Phosphatase 61 Total Protein 6.8 Albumin 4.4 Globulin 2.4 Albumin/Globulin Ratio 1.8 TSH 1.79 Quality Measures Quality Measures none Advance care planning discussed with:: patient Assessment & Plan Assessment Current Active Medications: Generic Name Dose Route Start Last Admin Trade Name Freq PRN Reason Stop Dose Admin Acetaminophen 650 mg 07/15/25 07:43 Acetaminophen 325 Mg Tablet PO 08/14/25 07:42 Q6H PRN Fever >100.4 or pain Aspirin 81 mg 07/16/25 09:00 07/16/25 08:14 Aspirin Ec 81 Mg Tabec PO 08/15/25 08:59 81 mg QDAY CARLITA Administration Atorvastatin Calcium 40 mg 07/15/25 21:00 07/15/25 21:58 Atorvastatin Calcium 20 Mg Tablet PO 08/14/25 20:59 40 mg HS CARLITA Administration Dextrose 25 ml 07/15/25 07:53 Dextrose 50%-Water Inj 50 Ml Syringe IV 08/14/25 07:52 Q15MIN PRN BG 50-70 responsive npo pt Dextrose 50 ml 07/15/25 07:53 Dextrose 50%-Water Inj 50 Ml Syringe IV 08/14/25 07:52 Q15MIN PRN BG <50 OR BG <70 & pt unresponsive Enoxaparin Sodium 40 mg 07/15/25 17:10 07/16/25 08:14 Enoxaparin Sod Inj 40 Mg/0.4 Ml Syringe SC 07/29/25 17:09 40 mg QDAY CARLITA Administration Finasteride 5 mg 07/15/25 16:15 07/16/25 08:14 Finasteride 5 Mg Tablet PO 08/14/25 16:14 5 mg QDAY CARLITA Administration Glucagon 1 mg 07/15/25 07:53 Glucagon Inj 1 Mg Vial IM Q15MIN PRN BG <70, and no IV access Lactated Ringer's 1,000 mls @ 120 mls/hr 07/16/25 08:20 07/16/25 09:19 Lactated Ringers IV 07/16/25 16:39 120 mls/hr .Q8H20M ONE Administration Insulin Human Lispro 0 unit 07/15/25 11:30 07/16/25 12:23 Insulin Lispro (Admelog) 1 Unit/0.01 Ml Unit SC 08/14/25 11:29 Not Given ACHS CARLITA Protocol Labetalol HCl 10 mg 07/15/25 07:50 Labetalol Inj 5 Mg/Ml Vial 20 Ml IVP 08/14/25 07:49 Q4HR PRN for SBP >180 Ondansetron HCl 4 mg 07/15/25 07:43 Ondansetron Inj 2 Mg/Ml Inj 2 Ml IVP 08/14/25 07:42 Q6H PRN NAUSEA OR VOMITING Protocol Oseltamivir Phosphate 75 mg 07/16/25 21:00 Oseltamivir 75 Mg Capsule PO 07/21/25 09:01 BID CARLITA Sennosides 1 tab 07/15/25 07:43 Senna Tablet PO 08/14/25 07:42 QDAY PRN constipation Protocol Plan Ravindra Simmons is 75 yr male with PMH of HTN, BPH, HLD, non insulin dependent T2DM presenting to ED from home due to dizziness. Stated he was trying to get up from bed last night to use the restroom but his body felt heavy. While laying in bed he was feeling dizzy and said the room was spinning. Will admit for CVA rule out. #Dizziness-resolved DDx: Ischemic stroke, TIA, cerebellar mass, vertigo Stated he was trying to get up from bed last night to use the restroom but his body felt heavy. While laying in bed he was feeling dizzy and said the room was spinning. Endorsed weakness and some incontinence. Vitals and labs were stable in the ED. Utox, UA negative. CT head, CTA negative for hemorrhage or LVO. 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 He was not candidate for thrombolytics as LWK was out of window. NIHSS score 1, given loading dose asprin and Plavix in ED. A1c 6.1, lipid profile unremarkable ?Dr. Connell was consulted--appreciate recs ?continue aspirin 81 mg -atorvastatin 40 mg HS ? Echo pending ?Physical therapy pending ? Head of bed elevation 30 degrees ? resumed home antihypertensives as below # Ipm-ggprffh-qdjrlwiap type 2 diabetes On admission initial glucose 145. Last A1c 6.3 on 05/10. Patient takes metformin 500mg daily for diabetes at home. -Held home medications -Bedside blood glucose checks ACHS -Insulin lispro sliding scale -Carb consistent low diet -A1c 6.1 #BPH #Prostatomegaly Cr 1.0, bladder distension on exam. Follows with Dr. Peralta. Patient has seen urologist in [place] in 2018 said that he had noninvasive biopsy of the prostate gland. CT AP from 07/04 Significant prostatomegaly, transverse dimension 6.4 cm with irregular contour -dc ramirez cath -continue finasteride 5mg daily -resume tamsulosin 0.4 mg BID #HTN Holding home medications lisinopril 20 mg daily and amlodipine 5 mg until tomorrow -resumed Health maintenance: Dispo: tele, TIA FEN: low carb diet DVT prophylaxis: Lovenox 40 CODE STATUS: Full code The patient's management plan was discussed with my attending physician Dr. Blaine Cavazos, PGY-2 Attending Provider Attestation/Addendum I, Renetta Valladares, DO, attest that I was physically present for the [place] portions of the service and evaluated the patient with the resident and I reviewed and discussed the case with the resident and agree with the resident's findings and plans of care as documented above Patient seen and evaluated this AM. He states that he is feeling much better today. Son is at bedside. They state that they were recommended by neurology to obtain MRI with contrast outpatient, but does not feel that the external mass found in right cerebellar region is causing the patient's symptoms. He also states that his tinnitus is worse in his left ear than his right. However, suspect that dizziness may been due to flu versus sinusitis as patient reports some sinus pressure. He reports seasonal allergies. Recommend for patient to see an ENT outpatient. Patient states that he was told by [employer] that he may have a leaky valve at time of echo, which he states that he was told he had in 2001 at [facility]. Reassured patient that we are awaiting final read of echo. If unremarkable, he likely can be discharged home and f/u with cardio outpt.
[2025-07-16] MEDS: TAMSULOSIN HCL 0.4 MG CAPSULE PO (14:57)
[2025-07-16 16:00] VITALS: BP 153/85; PULSE 69; RESP 19; TEMP 36.1; O2SAT 94
--- NOTE | 2025-07-16 17:20 | ESDS_ITS ---
<Statement entered by Renetta Valladares DO - 07/17/25 08:20> I, Renetta Valladares DO, attest that I was physically present for the [place] portions of the service and evaluated the patient with the resident and I reviewed and discussed the case with the resident and agree with the resident's findings and plans of care as documented above Planned Discharge Date 07/16/25 DS: Providers Provider Date of admission: 07/15/25 07:43 Primary care physician: Kyle Pichardo MD Admitting Provider: Renetta Valladares DO Attending Provider on Admission: Renetta Valladares DO Consults: 07/15/25 06:19 Consult to Neurology / Tele-Neurology Routine Comment: Consulting Provider: [facility] 07/15/25 07:49 Referral Physical Therapy Routine Comment: Physician Instructions: 07/16/25 07:00 Consult to Neurology / Tele-Neurology Routine Comment: Consulting Provider: Jabari Connell Attending Provider on DC: Renetta Valladares DO Discharging Provider: Renetta Valladares DO DS: Diagnosis Problem List Completed Was Problem List Reviewed/Reconciled?: Yes Hospital Course Hospital Course Hospital course: Reason for hospitalization: dizziness 2/2 TIA Ravindra Simmons is 75 yr male with PMH of HTN, BPH, HLD, non insulin dependent T2DM who presented to ED on 07/15/25 with cheif complaint of dizziness. Occured while getting up from bed at night to use the restroom. Stated his body felt heavy and he fell back down. While laying in bed he was feeling dizzy and said the room was spinning. Vitals and labs were stable in the ED. A1c 6.1, lipid profile unremarkable. Utox, UA negative. CT head, CTA negative for hemorrhage or LVO. 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 Tele neuro was consulted. He was not candidate for thrombolytics as LWK was out of window. Echo bubble study was negative. EF was 55-60% with Trace TR. Patient remained asymptomatic during hospitalization. Cerebellar mass was evaluated by in house neurology. Recommend to follow up outpatient with MRI brain with contrast. Patient is to continue aspirin daily and atorvastatin. Due to underlying BPH, ramirez cath was placed as he was complaining of urinary retention. Ramirez was dc/d and had good urine output. Patient is now in stable condition and ready for discharge. Recommendations were given as below. Discharge Recommendations: Resume previous medications. Start taking aspirin 81 mg daily for stroke prevention. Your atorvastatin dose was increased to 40mg daily. Complete Tamiflu course for 3 more days and wear mask around close contacts. Follow up with neurologist in 1-2 weeks. Will need MRI with contrast outpatient. Follow up with PCP in 1-2 weeks. Follow up with your pediatric registered nurse in 1-2 weeks. Hospital Diagnoses: #Dizziness-resolved #TIA #Cerebellar mass # Eak-rvgxbjn-pjgjcisph type 2 diabetes #BPH #Prostatomegaly #HTN The patient's management plan was discussed with my attending physician Dr. Valladares. Madonna Cavazos MD, PGY-2 Time Spent with Patient Time attestation: Total time spent providing and/or coordinating discharge services: Time spent: Greater than 30 minutes Exam Vital Signs Temp Pulse Resp BP Pulse Ox O2 Del Method 97.0 F 69 19 153/85 H 94 L Room Air 07/16/25 16:07/16/25 16:07/16/25 16:07/16/25 16:07/16/25 16:07/16/25 16:00 Narrative Exam General: Elder male, No acute distress, cooperative HEENT: NCAT, No JVD noted. Mucosa dry. Pupils are equal and reactive to light bilaterally. No nystagmus Cardiovascular: Normal S1 and S2. Regular rate and rhythm. Respiratory: Lungs are clear to auscultation bilaterally. No wheezing or crackles heard. Abdomen: Soft, nontender, not distended, normal bowel sounds. : ramirez removed Skin: Warm to touch, dry, no rashes noted Musculoskeletal: No gross injuries. Able to move all 4 extremities. No pitting edema Neuro: Alert and oriented x3. No focal neuro deficits noted on exam Psych: Normal affect and mood Discharge Plan Plan Patient Disposition: HOME (Self Care) Patient condition on transfer: Stable Prescriptions/Referrals Prescriptions/Med Rec: New aspirin 81 mg Tablet,Delayed Release (Dr/Ec) 81 mg PO QDAY 30 Days Qty: 30 0RF oseltamivir 75 mg Capsule 75 mg PO BID 3 Days Qty: 6 0RF atorvastatin 40 mg tablet 40 mg PO QDAY Qty: 30 0RF Continued tadalafil 5 mg tablet 5 mg PO QDAY metformin 500 mg tablet 500 mg PO QDAY finasteride 5 mg tablet 5 mg PO QDAY tamsulosin 0.4 mg capsule 0.4 mg PO BID amlodipine 5 mg tablet 5 mg PO HS Patient Comments: TAKE ONE TABLET BY MOUTH ONCE DAILY AT BEDTIME lisinopril 20 mg tablet 20 mg PO QDAY Patient Comments: TAKE 1 TABLET BY MOUTH EVERY DAY Discontinued atorvastatin 10 mg tablet 10 mg PO HS Patient Comments: TAKE ONE TABLET BY MOUTH ONE TIME DAILY Referrals: Kyle Pichardo MD [Primary Care Provider] Jabari Connell MD [Physician, Neurology] Patient/Caregiver Discharge Instructions Other Discharge Activity Instructions:: Resume previous medications. Start taking aspirin 81 mg daily for stroke prevention. Your atorvastatin dose was increased to 40mg daily. Complete Tamiflu course for 3 more days and wear mask around close contacts. Follow up with neurologist in 1-2 weeks. Will need MRI with contrast outpatient. Follow up with PCP in 1-2 weeks. Follow up with your pediatric registered nurse in 1-2 weeks. Education Materials: ED Influenza (Adult), ED TIA: Transient Ischemic Attack Print Language: Belarusian Stand Alone Forms: [facility] Award Info., Patient Portal Info Letter Discharge Order Discharge Orders: Discharge (Routine); Ordered 07/16/25 Ordered By: Madonna Cavazos Quality Discharge Quality Measures VTE prophylaxis
== END 2025-07-16 15:50 | disposition home or self-care (01) | DRG 69 ==
LOC: SERX 08:06 → SERHOLD 08:07 → S2NX 11:40 → S3SX 23:38
PROVIDERS: Admitting Provider Internal Medicine; Emergency Provider Emergency Medicine; PCP Internal Medicine; Visit Provider Internal Medicine
DX: G45.9 Transient cerebral ischemic attack, unspecified (principal); R17 Unspecified jaundice; I10 Essential (primary) hypertension; N40.1 Benign prostatic hyperplasia with lower urinary tract symptoms; E78.5 Hyperlipidemia, unspecified; E11.9 Type 2 diabetes mellitus without complications; H50.9 Unspecified strabismus; G93.9 Disorder of brain, unspecified; J30.2 Other seasonal allergic rhinitis; R33.8 Other retention of urine; R32 Unspecified urinary incontinence; W19.XXXA Unspecified fall, initial encounter; Z79.02 Long term (current) use of antithrombotics/antiplatelets; Z79.4 Long term (current) use of insulin; J10.1 Influenza due to other identified influenza virus with other respiratory manifestations; Z79.82 Long term (current) use of aspirin; Z79.899 Other long term (current) drug therapy; Z79.84 Long term (current) use of oral hypoglycemic drugs; Z88.0 Allergy status to penicillin; Z88.2 Allergy status to sulfonamides
CPT/HCPCS: 36415; 70450; 70496; 70498; 70544; 71045; 80053; 80061; 80307; 81001; 83036; 83735; 83880; 84100; 84443; 84484; 85025; 85610; 85730; 87400; 87811; 93005; 93225; 93306; 99285; A4314; A4649; J1650; J7120; Q9967; A9270

== ENCOUNTER 2025-07-27 15:00 | Outpatient (AMB) | payer MEDICARE, OTHER, SELFPAY ==
[2025-07-27 15:06] VITALS: BP 122/72; PULSE 86; RESP 18; TEMP 36.4; O2SAT 94; BMI 28.5
--- NOTE | 2025-07-27 15:06 | GSCOFFNT_ITS ---
Vital Signs - [facility] 07/27/25 15:06 Height 1.7 m Height Method Measured Weight 82.582 kg Weight Measurement Method Standing Scale BMI 28.5 BP 122/72 Blood Pressure Source Automatic Cuff Blood Pressure Location Left Upper Arm Position Sitting Respiration 18 Pulse 86 Pulse Source Monitor Temp 97.5 F Temp Source Temporal Artery Scan Pulse Oximetry (%) 94 L Oxygen Delivery Method Room Air Med/Allergies Allergies & Medications Allergies Penicillins Allergy (Mild, Verified 07/27/25 15:07) Rash Sulfa (Sulfonamide Antibiotics) Allergy (Verified 07/27/25 15:07) Nausea, Vomiting Medication Reconciliation amlodipine 5 mg tablet 5 mg PO HS 05/18/23 [History Confirmed 07/27/25] finasteride 5 mg tablet 5 mg PO QDAY 03/16/25 [History Confirmed 07/27/25] metformin 500 mg tablet 500 mg PO QDAY 03/16/25 [History Confirmed 07/27/25] tadalafil 5 mg tablet 5 mg PO QDAY 03/16/25 [History Confirmed 07/27/25] tamsulosin 0.4 mg capsule 0.4 mg PO BID 03/16/25 [History Confirmed 07/27/25] lisinopril 20 mg tablet 20 mg PO QDAY 07/15/25 [History Confirmed 07/27/25] aspirin 81 mg tablet,delayed release 81 mg PO QDAY 30 days #30 tabs 07/16/25 [Rx Confirmed 07/27/25] atorvastatin 40 mg tablet 40 mg PO QDAY #30 tabs 07/16/25 [Rx Confirmed 07/27/25] MA Intake Visit Data Collection New Patient or Established: Established Patient (seen at [facility] within 3 years) Seen by Clinical Staff ONLY (RN/MA): No Reason for Visit:: REFERRAL HEMORRHOIDS Pain Present Currently: No Pain Scale Used: [employer] Required: No PCP or OBGYN visit in last 3 months: Yes Hx Now: No Do You Feel Safe at Home: Yes Authorities Contacted: N/A Smoking Status Smoking Status: Never smoker Immunization / Flu Flu Vaccine in the Last 12 Months: Yes Flu Vaccine Exclusion Criteria: Already Received Past Medical History Past Medical History NEUROLOGIC: Negative Neurological Disorders or Seizures CARDIAC: Positive Cardiac Disorders and Hypertension; Negative Congestive Heart Failure RESPIRATORY: Negative Chronic Obstructive Pulmonary Disease (COPD) GASTROINTESTINAL: Negative Gastrointestinal Disorders GENITOURINARY: Positive Benign Prostatic Hyperplasia; Negative Genitourinary Disorders or Renal Disease ENDOCRINE: Negative Endocrine Disorders, Diabetes Mellitus Type 1 or Diabetes Mellitus Type 2 HEMATOLOGIC: Negative Blood Disorders OTHER HISTORY: Positive Chicken Pox, Measles, Mumps and Cancer; Negative Autoimmune Disease, Blood Transfusions or Anesthesia Reactions Family History FAMILY HISTORY: Negative Family Anesthesia Reaction Social History SMOKING STATUS: Smoking status: Never smoker ALCOHOL: Alcohol Intake: Never HOUSING: Housing: House LIVES WITH: Lives With: Alone HPI HPI Narrative HISTORY OF PRESENT ILLNESS I, Trista Crandall, have obtained verbal consent from the patient, to be recorded during this encounter which may include, but not limited to, medical history, examination, treatment plans, and relevant health information.? Patient was informed that recording will be read and reviewed by myself before inclusion in the medical chart. The patient is a 75-year-old male who presents for hemorrhoids. He has been managing hemorrhoids since 2006. Over the past few months, he has experienced flare-ups and bleeding from his hemorrhoids. He reports no itching but notes the presence of external tissue that he can occasionally push back in. He also mentions discomfort in his perineum. He does not experience constipation and uses disposable wipes for hygiene. He has noticed wet spots in his pants, which he attributes to bleeding, and uses a thin pad for this issue. He also reports minor bowel leakage. He has been using a 2% hydrocortisone ointment for the past few months which has helped somewhat. PMH: HTN, HLD, DMII, BPH, planned for prostate biopsy based on size and PSA, also undergoing workup for TIA and vertigo PSHx: Bilateral inguinal hernia and umbilical hernia repairs with mesh in 2006 Meds: includes ASA 81mg, hydrocortisone 2% Allergies: PCN, sulfa 2. Benign Prostatic Hyperplasia (BPH). History of benign enlarged prostate diagnosed in 2006, currently experiencing urology problems. A biopsy of the prostate is planned to rule out any malignancy, given his long history of BPH and recent changes in symptoms. 3. Suspected Pulmonary Embolism. Currently being evaluated for a possible pulmonary embolism due to flu, which caused his blood pressure to rise to 190. Currently on baby aspirin. 4. Balance Problems. Reports balance problems, which may be due to an inner ear crystal. Plans to travel to [place] on Thursday for further testing. Also reports tinnitus and is scheduled for a brain scan with contrast. ROS Review of Systems Systems Reviewed: All systems reviewed, normal except as documented Objective/Exam General General Appearance: alert, cooperative and well groomed Resp Respiratory exam: Absent respiratory distress Assessment & Plan Diagnosis / Problem List (1) Hemorrhoids with prolapsed tissue that cannot be manually replaced: Status: Acute Assessment & Plan: Experiencing hemorrhoids since 2006, with recent flare-ups and bleeding over the past couple of months. Hydrocortisone 2% ointment has provided some relief. Discussed potential benefits and risks of hemorrhoid surgery, including the possibility of needing a catheter post-surgery and the risk of infection leading to fistula formation. Suggested Epsom salt with sitz baths for symptom relief. Recommended Pranicura as an [id number] treatment option. Informed about the side effects of long-term hydrocortisone use, including skin thinning and increased irritation. Pt is interested in excisional hemorrhoidectomy but would like to follow up next year so he can pursue workup of his other medical problems Advanced Care Planning Advance care planning discussed with:: other Office Procedures GNS Level of Care Nursing/Assessment Patient Status: Established Patient Nursing Assessment/Reassesment: Medication Reconciliation, Update PMH in EMR and Vital Signs Coordination of Care: Complex Care and Chronic Disease 1-5, Education Complex Pt/Fam, Consent,records obtained, informed consent, Results/Orders obtained and Staff clarify orders Established Patient Charge Established Patient Point Assignment: 95 Established Patient Point Charge: EP Level 3 (80-115) Patient Portal Questionaires Social History Living Situation History Housing: House Tobacco History Smoking Status: Never smoker Alcohol History Alcohol Intake: Never Domestic Abuse History Do You Feel Safe at Home: Yes Review of Systems Report any current symptoms Only answer those that you have currently: Past Medical History Past Medical History Have you ever been diagnosed with any of the following: Neurological Problems Seizures: No Cardiology Problems Congestive Heart Failure: No Hypertension: Yes Respiratory Problems Chronic Obstructive Pulmonary Disease (COPD): No Genital/Urinary Problems Renal Disease: No Benign Prostatic Hyperplasia: Yes Endocrine Problems Diabetes Mellitus Type 1: No Diabetes Mellitus Type 2: No Other Problems Autoimmune Disease: No Blood Transfusions: No Anesthesia Reactions: No Chicken Pox: Yes Measles: Yes Mumps: Yes Cancer: Yes
== END 2025-07-27 15:52 | disposition home or self-care (01) ==
LOC: HODSRG 15:00
PROVIDERS: PCP Internal Medicine; Referring Provider Internal Medicine; Supervising Provider Surgery; Visit Provider Surgery
DX: K64.3 Fourth degree hemorrhoids (principal); N40.0 Benign prostatic hyperplasia without lower urinary tract symptoms; H93.19 Tinnitus, unspecified ear; I10 Essential (primary) hypertension; E11.9 Type 2 diabetes mellitus without complications
CPT/HCPCS: 99213; G0463

== ENCOUNTER → 2025-08-07 | Outpatient (CLI) | payer MEDICARE, OTHER, SELFPAY ==
--- NOTE | 2025-08-07 17:00 | XR_ITS ---
Examination: MRI of brain without intravenous contrast. MRI brain with intravenous contrast. Date and time of exam: August 07, 2025, 1755 hours INDICATIONS: Abnormal high pitch noise in the left ear with vertigo and numbness in the extremities beginning July 16, 2025 Technique: Multiple axial and sagittal images of the brain to been obtained. Siemens high-resolution 1.52 Jody short bore scanner utilized. Sagittal sections, T1 weighted images, TR 500, TE 14, are performed. Axial sections proton-density and T2-weighted images have been obtained. Inversion recovery axial images, TR 9260, TE 111, TR 2500. Diffusion weighted images, axial sections, TR 4800, TE 128, B value 1000. Axial sections, ADC map, TR 4800, TE 128. Axial and coronal images were also obtained post 16 cc gadolinium administered intravenously. Findings:: Enlargement of the sella turcica is not present. The optic chiasm and infundibular stalk are not remarkable. There is no localized enlargement of the medulla or pam. Fourth ventricle and cerebellar tonsils appear normal in position. No subacute area of hemorrhage density is seen. Fourth ventricle is midline. Mass in the cerebellopontine angle region is not evident. 7th and 8th nerve complexes exhibit symmetry Globes are symmetrical Orbital musculature including medial lateral rectus muscles do not exhibit abnormality Increased white matter signal is mild Effacement of the cortical sulcal markings is not identified. Mass effect upon the ventricular system is not identified. Diffusion-weighted images demonstrate no focus of restricted diffusion Contrast images demonstrate findings suspicious for ectatic right internal carotid artery, also enhancing lesion contiguous with the inferior right cerebellar tentorium, axial image 6, coronal image 24, sagittal image 7 consistent with meningioma, 20 x 11 x 14 mm Impression: Recommend CTA neck brain post contrast follow-up to confirm ectatic right internal carotid artery 20 x 11 x 14 mm enhancing lesion contiguous with the inferior right cerebellar tentorium most consistent with incidental meningioma
== END | disposition home or self-care (01) ==
LOC: SMRI 16:45
PROVIDERS: PCP Internal Medicine; Referring Provider Internal Medicine; Visit Provider Internal Medicine
DX: G93.89 Other specified disorders of brain (principal)
CPT/HCPCS: 70553; A9577